=== PATIENT | male | born 1950 | race Caucasian/White ===

== ENCOUNTER 2020-07-04 06:14 | Observation (INO) ==
[~2020-07-04 06:14] MED LIST: Acetaminophen IV 1,000 MG/100 ML INFUS..BTL IVPB ONE
[2020-07-04] MEDS ORDERED: Vancomycin 1,250 MG/262.5 ML IV.SOLN IVPB ONE ×2 (06:41→20:00)
[2020-07-04] MEDS ORDERED: CeFAZolin Syr 2,000MG/20 ML 2,000 MG/20 ML SYRINGE IVPB ONE (06:41)
[2020-07-04] MEDS ORDERED: Ringers Solution, Lactated 1,000 ML IVC SCH (06:45)
[2020-07-04] MEDS ORDERED: Ondansetron 4 MG/2 ML VIAL ONE (06:59)
[2020-07-04] MEDS ORDERED: *HR* FentaNYL (PF) 100 MCG/2 ML VIAL ONE ×2 (06:59→10:10)
[2020-07-04] MEDS ORDERED: Dexamethasone 4 MG/ML VIAL ONE (06:59)
[2020-07-04] MEDS ORDERED: Lidocaine -MPF 2% 2 ML VIAL ONE (06:59)
[2020-07-04] MEDS ORDERED: *HR* Propofol 200 MG/20 ML VIAL IVP ONE (06:59)
[2020-07-04] MEDS ORDERED: Heparin 1,000 UNITS/500 mL 0 ML ONE (07:04)
[2020-07-04] MEDS ORDERED: *HR* Meperidine 25 MG/ML SYRINGE IVP PRN (07:08)
[2020-07-04] MEDS ORDERED: *HR* Promethazine 25 MG/ML VIAL IVP PRN (07:08)
[2020-07-04] MEDS ORDERED: Ondansetron 4 MG/2 ML VIAL IVP ONE (07:08)
[2020-07-04] MEDS ORDERED: *HR* HYDROmorphone PF 0.5 MG/0.5 ML SYRINGE IVP PRN (07:08)
[2020-07-04] MEDS ORDERED: Acetaminophen IV 1,000 MG/100 ML INFUS..BTL IVPB ONE (07:15)
[2020-07-04] MEDS ORDERED: *HR* Succinylcholine 200 MG/10 ML VIAL IVP ONE (07:23)
[2020-07-04] MEDS ORDERED: Heparin 1,000 UNITS/500 mL 500 ML ONE (07:25)
[2020-07-04] MEDS ORDERED: Heparin 1,000 UNITS/500 mL 1,500 ML ONE (07:33)
[2020-07-04] MEDS ORDERED: Bupivacaine-MPF 0.25% 10 ML VIAL ONE (07:35)
[2020-07-04] MEDS ORDERED: Vancomycin 1,000 MG, Sodium Chloride IRRigation 1,000 ML IR ONE (08:15)
[2020-07-04] MEDS ORDERED: *HR* Rocuronium Bromide 50 MG/5 ML VIAL ONE (08:39)
[2020-07-04] MEDS ORDERED: *HR* HYDROMORPHONE 2 MG/ML VIAL ONE (08:39)
[2020-07-04] MEDS ORDERED: *HR* PHENYLEPHRINE 1,000 MCG/10 ML SYRINGE IVP ONE (08:45)
[2020-07-04] MEDS ORDERED: *HR* Heparin 5,000 UNIT/ML VIAL ONE (09:35)
[2020-07-04] MEDS ORDERED: EPHEDrine 50 MG/ML VIAL ONE (09:45)
[2020-07-04] MEDS ORDERED: 0.9 % Sodium Chloride 1,000 ML IVC SCH (12:11)
[2020-07-04] MEDS ORDERED: *HR* HYDROcodone/Acet 5/325 mg TABLET PO PRN ×2 (12:11)
[2020-07-04] MEDS ORDERED: *HR* Labetalol 20 MG/4 ML SYRINGE IVP PRN (12:11)
[2020-07-04] MEDS ORDERED: *HR* OxyCODONE Immed Rel 5 MG TABLET PO PRN ×2 (12:11)
[2020-07-04] MEDS ORDERED: Naloxone 0.4 MG/ML INJ IVP PRN (12:11)
[2020-07-04] MEDS ORDERED: Acetaminophen 325 MG TABLET PO PRN ×2 (12:11)
[2020-07-04] MEDS: *HR* Metoprolol 5 MG/5 ML VIAL IVP SCH ×2 (12:40→18:18)
[2020-07-04] MEDS: CeFAZolin 2 GM/120 ML BAG IVPB SCH (16:56)
[2020-07-04] MEDS ORDERED: Latanoprost 2.5 ML BOTTLE BOTH EYES SCH (21:00)
[2020-07-05] MEDS: CeFAZolin 2 GM/120 ML BAG IVPB SCH (00:22)
[2020-07-05] MEDS: *HR* Metoprolol 5 MG/5 ML VIAL IVP SCH ×2 (00:22→06:05)
[2020-07-05 01:39] LABS: Basophils % 0.1 %; Eosinophils % 0.3 %; Hematocrit 40.4 % (37.5-50.1); Hemoglobin 13.8 g/dL (12.9-16.9); Immature Granulocytes % 0.4 % (0-4); Lymphocytes % 13.1 %; Mean Corpuscular HGB Conc 34.2 g/dL (31.6-35.5); Mean Corpuscular Hemoglobin 33.1 pg (28.0-33.3); Mean Corpuscular Volume 96.9 fL (83.0-100.0); Monocytes # 0.6 K/mcL (0.0-1.3); Monocytes % 7.3 %; Neutrophils # 6.2 K/mcL (1.6-8.9); Platelet Count 207 K/mcL (140-400); Red Blood Count 4.17 M/mcL (4.19-5.50); Red Cell Distribution Width 12.7 % (11.5-14.5); Segmented Neutrophils % 78.8 %; White Blood Count 7.9 K/mcL (4.3-11.1)
[2020-07-05 01:59] LABS: BUN/Creatinine Ratio 11 (6-26); Blood Urea Nitrogen 6 mg/dL (8-23); Calcium 8.6 mg/dL (8.6-10.3); Carbon Dioxide 22 mEq/L (23-29); Chloride 100 mEq/L (98-107); Glucose 118 mg/dL (70-105); Osmolality,Calculated 269 (280-300); Potassium 3.9 mEq/L (3.5-5.1); Sodium 130 mEq/L (136-145); eGFR For African Americans > 60 (> 60); eGFR For Non-African Americans > 60 (> 60)
[2020-07-05] MEDS ORDERED: *HR* Heparin 5,000 UNIT/ML VIAL SQ SCH ×2 (06:00)
[2020-07-05 07:12] VITALS: BP 138/69
[2020-07-05] MEDS ORDERED: lisinopriL 20 MG TABLET PO SCH (09:00)
[2020-07-05] MEDS ORDERED: Multivit/Ca/Min/Fe/FA 1 TAB TABLET PO SCH (09:00)
== END 2020-07-05 10:20 | disposition home or self-care (01) ==
LOC: SAMDAY 06:14 → 2NNU 11:48 → INTOOBSV 11:48
PROVIDERS: ADMIT Surgery; ATTEND Surgery

== ENCOUNTER 2022-07-13 19:43 | Observation (INO) ==
[2022-07-13 20:32] LABS: Basophils % 0.5 %; Eosinophils # 0.3 K/mcL (0.0-0.6); Eosinophils % 4.3 %; Hematocrit 42.3 % (37.5-50.1); Hemoglobin 15.2 g/dL (12.9-16.9); Immature Granulocytes % 0.8 % (0-4); Lymphocytes # 1.2 K/mcL (0.6-4.6); Lymphocytes % 15.6 %; Mean Corpuscular HGB Conc 35.9 g/dL (31.6-35.5); Mean Corpuscular Volume 94.6 fL (83.0-100.0); Mean Platelet Volume 8.8 fL (9.4-12.4); Monocytes # 0.5 K/mcL (0.0-1.3); Monocytes % 6.5 %; Neutrophils # 5.7 K/mcL (1.6-8.9); Platelet Count 247 K/mcL (140-400); Red Blood Count 4.47 M/mcL (4.19-5.50); Red Cell Distribution Width 12.9 % (11.5-14.5); Segmented Neutrophils % 72.3 %; White Blood Count 7.8 K/mcL (4.3-11.1)
[2022-07-13 20:35] LABS: VBG HCO3 23 mEq/L (21-27); VBG PCO2 39 mmHg (41-51); VBG PH 7.38 pH Units (7.32-7.42); VBG PO2 73 mmHg (25-50)
[2022-07-13 20:40] LABS: INR 1.3; Prothrombin Time 14.5 Seconds (9.4-12.1)
[2022-07-13 20:54] LABS: Alanine Aminotransferase 32 Units/L (7-52); Albumin 4.2 g/dL (3.5-5.7); Albumin/Globulin Ratio 1.5 (1.1-2.2); Alkaline Phosphatase 61 Units/L (34-104); Aspartate Amino Transferase 21 Units/L (13-39); BUN/Creatinine Ratio 19 (6-26); Bilirubin,Direct 0.1 mg/dL (0.0-0.2); Bilirubin,Indirect 0.5 mg/dL (0.0-1.0); Bilirubin,Total 0.6 mg/dL (0.3-1.0); Blood Urea Nitrogen 13 mg/dL (8-23); Calcium 9.2 mg/dL (8.6-10.3); Carbon Dioxide 23 mEq/L (23-29); Chloride 97 mEq/L (98-107); Globulin 2.8 g/dL (2.4-3.5); Glucose 146 mg/dL (70-105); Lipase 44 Units/L (11-82); Osmolality,Calculated 269 (280-300); Sodium 128 mEq/L (136-145); Troponin I < 0.03 ng/mL (< 0.04)
[2022-07-13 21:21] LABS: Bilirubin,Urine Negative (Negative); Blood,Urine Trace (Negative); Clarity,Urine Clear (Clear); Color,Urine Light-Yellow (Yellow); Glucose,Urine (UA) Normal (Normal); Ketones,Urine Negative (Negative); Leukocyte Esterase,Urine Negative (Negative); Mucus,Urine Few per lpf (None-Few); Nitrite,Urine Negative (Negative); Protein,Urine Negative (Neg-Trace); Specific Gravity,Urine 1.021 (1.010-1.025); Urobilinogen,Urine Normal (Normal); WBC,Urine 0-3 per hpf (0-3)
[2022-07-13] MEDS ORDERED: Iopamidol - 370 500 ML MLS IVP ONE (23:41)
[2022-07-14] MEDS ORDERED: Naloxone 0.4 MG/ML INJ IVP PRN (02:29)
[2022-07-14] MEDS ORDERED: Acetaminophen 325 MG TABLET PO PRN (02:29)
[2022-07-14] MEDS ORDERED: Ondansetron 4 MG/2 ML VIAL IVP PRN (02:29)
[2022-07-14 03:38] VITALS: BP 163/84; PULSE 84; TEMP 98.1; O2SAT 94
[2022-07-14 04:47] LABS: Basophils % 0.2 %; Eosinophils # 0.2 K/mcL (0.0-0.6); Hemoglobin 14.7 g/dL (12.9-16.9); Immature Granulocytes % 0.6 % (0-4); Lymphocytes # 1.1 K/mcL (0.6-4.6); Lymphocytes % 12.4 %; Mean Corpuscular HGB Conc 35.9 g/dL (31.6-35.5); Mean Corpuscular Volume 94.9 fL (83.0-100.0); Mean Platelet Volume 8.9 fL (9.4-12.4); Monocytes # 0.6 K/mcL (0.0-1.3); Monocytes % 6.6 %; Platelet Count 213 K/mcL (140-400); Red Blood Count 4.32 M/mcL (4.19-5.50); Red Cell Distribution Width 12.7 % (11.5-14.5); Segmented Neutrophils % 78.2 %; White Blood Count 8.9 K/mcL (4.3-11.1)
[2022-07-14] MEDS ORDERED: *HR* Metoprolol 5 MG/5 ML VIAL IVP PRN (04:51)
[2022-07-14 05:08] LABS: INR 1.2; Prothrombin Time 13.6 Seconds (9.4-12.1)
[2022-07-14 05:09] LABS: BUN/Creatinine Ratio 14 (6-26); Blood Urea Nitrogen 9 mg/dL (8-23); Calcium 9.2 mg/dL (8.6-10.3); Carbon Dioxide 23 mEq/L (23-29); Chloride 98 mEq/L (98-107); Glucose 104 mg/dL (70-105); Magnesium 1.9 mg/dL (1.6-2.6); Osmolality,Calculated 263 (280-300); Sodium 127 mEq/L (136-145)
[2022-07-14 05:57] LABS: Estimated Average Glucose 114 mg/dl; Hemoglobin A1C 5.6 %
[2022-07-14 06:15] LABS: Troponin I < 0.03 ng/mL (< 0.04)
[2022-07-14 08:08] LABS: Chloride,Urine 110 mEq/L; Potassium,Urine 38.8 mEq/L; Sodium, Urine 95.8 mEq/L
[2022-07-14] MEDS ORDERED: Simethicone 80 MG TAB.CHEW PO SCH (09:45)
[2022-07-14 11:18] LABS: Amphetamine Screen,Urine Negative ng/mL (Cutoff=1000); Barbiturate Screen,Urine Negative ng/mL (Cutoff=200); Benzodiazepines Screen,Urine Negative ng/mL (Cutoff=200); Cannabinoid Screen,Urine Negative ng/mL (Cutoff = 50); Cocaine Screen,Urine Negative ng/mL (Cutoff= 300); Opiate Screen,Urine Negative ng/mL (Cutoff=300); Phencyclidine Screen,Urine Negative ng/mL (Cutoff=25)
[2022-07-15 16:05] LABS: Chol/HDL Ratio 3.1 (0-4.9); Cholesterol 119 mg/dL (< 200); HDL Cholesterol 39 mg/dL (40-59); LDL Cholesterol,Calculated 63 mg/dL (< 100); Triglycerides 84 mg/dL (< 150)
== END 2022-07-14 10:36 | disposition home or self-care (01) ==
LOC: EMEROOARM 19:43 → 3ANU 19:43
PROVIDERS: ADMIT Internal Medicine; ATTEND Internal Medicine